=== PATIENT | female | born 1985 | race Caucasian/White ===

== ENCOUNTER 2023-07-13 11:52 | Outpatient (CLI) | payer BC, MEDICAID, SELFPAY ==
--- NOTE | 2023-07-13 11:45 | MM_ITS ---
WS: [id number] VIEWS: MLO and CC views both breasts. 3D digital tomosynthesis is also included in this exam. no prior exams.. Findings: There is a questionable 8 x 4 mm asymmetric nodule at the 9 o'clock position in the RIGHT breast at p osterior depth. No architectural distortion or suspicious calcification noted. Compression spot imagi ng with tomography of the RIGHT breast is recommended for further evaluation. The remaining aspects o f the RIGHT breast are unremarkable. No significant abnormality in the LEFT breast. There are scatter ed areas of fibroglandular density. Impression: MM/[place] [id number] BI-RADS: 0-Incomplete: Need additional imaging evaluation FOLLOW-UP: See Report This mammogram was also analyzed by the Computer Aided Detection System [employer] e [employer].
== END 2023-07-13 11:53 | disposition home or self-care (01) ==
LOC: MOBLMAM 12:01
PROVIDERS: Visit Provider Obstetrics & Gynecology
DX: Z12.31 Encounter for screening mammogram for malignant neoplasm of breast (principal)
CPT/HCPCS: 77063; 77067